=== PATIENT | male | born 1985 | race African-American/Black ===

== ENCOUNTER 2022-09-26 20:03 | Inpatient (IN) | payer SELFPAY ==
[2022-09-26] MEDS ORDERED: Adenosine 6 MG/2 ML VIAL ONE ×2 (20:14)
[2022-09-26] MEDS ORDERED: Metoprolol Tartrate 50 MG TAB ONE (20:51)
[2022-09-26] MEDS ORDERED: Magnesium 2 GM/50 ML BAG (IN WATER) ONE (20:51)
[2022-09-26 21:38] LABS: #Basophils 0.1 thou/uL (0.0-0.2); #Eosinphils 0.2 thou/uL (0.0-0.7); #Lymphocytes 3.7 thou/uL (1.20-3.40); #Monocytes 0.7 thou/uL (0.11-0.59); %Basophils 0.4 % (0.0-1.0); %Eosinophils 1.9 % (0.0-10.0); %Lymphocytes 28.9 % (21.0-51.0); %Monocytes 5.7 % (0.0-10.0); %Neutrophils 63.1 % (42.0-75.0); Hemoglobin 14.6 g/dL (14.0-18.0); Mean Corpuscular HGB CONC 33.4 g/dL (32.0-36.0); Mean Corpuscular Volume 95.6 fl (78.0-98.0); Mean Platelet Volume 9.5 fL (7.4-10.4); Platelet Count 191 10x3/uL (130-400); RBC Distribution Width 12.4 % (11.5-14.5); Red Blood Cell (RBC) Count 4.58 mill/uL (4.70-6.10); White Blood Cell (WBC) Count 12.7 10x3/uL (4.8-10.8)
[2022-09-26 21:46] LABS: ALT (SGPT) 79 U/L (8-55); AST (SGOT) 42 U/L (5-34); Alkaline Phosphatase 31 U/L (40-110); Anion Gap 13 mmol/L (10-20); BUN (Urea Nitrogen) 16 mg/dL (8.9-20.6); Bilirubin, Total 0.6 mg/dL (0.2-1.2); Calc. Creatinine Clearance 0 mL/min (70-130); Calcium 9.2 mg/dL (7.8-10.44); Carbon Dioxide 21 mmol/L (22-29); Chloride 111 mmol/L (98-107); Estimated GFR 73; Globulin 3.1 g/dL (2.4-3.5); Glucose 95 mg/dL (70-105); Potassium 4.3 mmol/L (3.5-5.1); Protein, Total 7.1 g/dL (6.0-8.3); Sodium 141 mmol/L (136-145)
[2022-09-26 22:18] LABS: CKMB 6.9 ng/mL (0-6.6)
[2022-09-26 23:30] LABS: Magnesium 2.2 mg/dL (1.6-2.6)
[2022-09-26] MEDS ORDERED: Aspirin Chewable 81 MG TAB ONE (23:30)
[2022-09-26] MEDS ORDERED: Ondansetron PF 4 MG/2 ML Vial IVP PRN (23:53)
[2022-09-26] MEDS ORDERED: Acetaminophen 325 MG TAB PO PRN (23:53)
[2022-09-27] MEDS ORDERED: Diltiazem 125 MG in Sodium Chloride 0.9% 100 ML IVPB SCH (02:15)
[2022-09-27] MEDS ORDERED: Diltiazem 125 MG/25 ML ONE (02:39)
[2022-09-27 03:11] LABS: Bilirubin Negative (Negative); Blood, Urine Negative (Negative); Clarity Turbid (Clear); Glucose, Urine (Dipstick) Normal (Negative); Ketone, Urine Negative (Negative); Leukocyte Negative Leu/uL (Negative); Nitrite Negative (Negative); Protein, Urine (Dipstick) 20 mg/dL (Neg-Trace); Specific Gravity, Urine 1.028 (1.002-1.036); Urobilinogen Normal mg/dL (Less than 2)
[2022-09-27 03:20] LABS: Amphetamine Not Detected (NotDetected); Barbiturates Screen Not Detected (NotDetected); Benzodiazepine Screen Not Detected (NotDetected); Cocaine Metabolite Screen Not Detected (NotDetected); Methadone Not Detected (NotDetected); Methamphetamine Not Detected (NotDetected); Opiate Screen Not Detected (NotDetected); Oxycodone Screen Not Detected (NotDetected); Phencyclidine (PCP) Not Detected (NotDetected); THC/Cannabinoid Screen Detected (NotDetected); Tricyclic Screen Not Detected (NotDetected)
[2022-09-27 04:24] LABS: SARS-CoV-2 NAA Rapid Test Not Detected (NotDetected)
[2022-09-27 04:39] LABS: #Eosinphils 0.4 thou/uL (0.0-0.7); #Lymphocytes 4.1 thou/uL (1.20-3.40); #Monocytes 0.6 thou/uL (0.11-0.59); #Neutrophils 6.2 thou/uL (1.40-6.50); %Basophils 0.4 % (0.0-1.0); %Eosinophils 3.3 % (0.0-10.0); %Lymphocytes 36.2 % (21.0-51.0); %Monocytes 5.3 % (0.0-10.0); %Neutrophils 54.8 % (42.0-75.0); Hemoglobin 13.9 g/dL (14.0-18.0); Mean Corpuscular HGB CONC 34.7 g/dL (32.0-36.0); Mean Corpuscular Hemoglobin 32.9 pg (27.0-31.0); Mean Platelet Volume 9.7 fL (7.4-10.4); Platelet Count 180 10x3/uL (130-400); RBC Distribution Width 12.4 % (11.5-14.5); Red Blood Cell (RBC) Count 4.21 mill/uL (4.70-6.10); White Blood Cell (WBC) Count 11.3 10x3/uL (4.8-10.8)
[2022-09-27 04:59] LABS: ALT (SGPT) 68 U/L (8-55); AST (SGOT) 35 U/L (5-34); Albumin 3.6 g/dL (3.5-5.0); Alkaline Phosphatase 32 U/L (40-110); Bilirubin, Direct 0.1 mg/dL (0.1-0.3); Bilirubin, Total 0.4 mg/dL (0.2-1.2); Protein, Total 6.5 g/dL (6.0-8.3)
[2022-09-27 05:01] LABS: Anion Gap 12 mmol/L (10-20); BUN (Urea Nitrogen) 16 mg/dL (8.9-20.6); Calc. Creatinine Clearance 130 mL/min (70-130); Calcium 8.5 mg/dL (7.8-10.44); Carbon Dioxide 23 mmol/L (22-29); Chloride 108 mmol/L (98-107); Estimated GFR 90; Glucose 100 mg/dL (70-105); Magnesium 2.1 mg/dL (1.6-2.6); Potassium 3.7 mmol/L (3.5-5.1); Sodium 139 mmol/L (136-145)
[2022-09-27 05:07] LABS: Troponin I 0.977 ng/mL (< 0.028)
[2022-09-27 12:14] VITALS: BMI 35.7
[2022-09-27] MEDS ORDERED: Communication Order-Pharmacy FS SCH (16:00)
[2022-09-27] MEDS ORDERED: FLU VACC QS2022-23(6MOS UP)/PF 60 MCG/0.5 ML SYRINGE IM ONE (18:00)
[2022-09-28 05:11] LABS: #Basophils 0.1 thou/uL (0.0-0.2); #Eosinphils 0.3 thou/uL (0.0-0.7); #Lymphocytes 3.5 thou/uL (1.20-3.40); #Monocytes 0.6 thou/uL (0.11-0.59); %Basophils 0.8 % (0.0-1.0); %Eosinophils 4.3 % (0.0-10.0); %Lymphocytes 46.4 % (21.0-51.0); %Neutrophils 40.5 % (42.0-75.0); Hemoglobin 14.4 g/dL (14.0-18.0); Mean Corpuscular HGB CONC 35.1 g/dL (32.0-36.0); Mean Corpuscular Volume 94.2 fl (78.0-98.0); Mean Platelet Volume 9.4 fL (7.4-10.4); Platelet Count 181 10x3/uL (130-400); RBC Distribution Width 12.1 % (11.5-14.5); Red Blood Cell (RBC) Count 4.37 mill/uL (4.70-6.10); White Blood Cell (WBC) Count 7.5 10x3/uL (4.8-10.8)
[2022-09-28 05:38] LABS: Anion Gap 13 mmol/L (10-20); BUN (Urea Nitrogen) 12 mg/dL (8.9-20.6); Calc. Creatinine Clearance 137 mL/min (70-130); Calcium 8.9 mg/dL (7.8-10.44); Carbon Dioxide 22 mmol/L (22-29); Chloride 106 mmol/L (98-107); Estimated GFR 92; Glucose 116 mg/dL (70-105); Potassium 3.7 mmol/L (3.5-5.1); Sodium 137 mmol/L (136-145)
[2022-09-28] MEDS ORDERED: Nitroglycerin 100MG/250ML BOT 0 ML ONE (08:28)
[2022-09-28] MEDS ORDERED: Lidocaine 1% (PF) 30 ML VIAL ONE (08:28)
[2022-09-28] MEDS ORDERED: Verapamil 5 MG/2 ML VIAL ONE ×2 (08:28→08:29)
[2022-09-28] MEDS ORDERED: Nitroglycerin 100MG/250ML BOT 250 ML ONE (08:30)
[2022-09-28] MEDS ORDERED: Heparin 10,000 UNITS/ 10 ML VIAL ONE (08:30)
[2022-09-28] MEDS ORDERED: Midazolam HCl 2 mg/2 ml Vial ONE (08:39)
[2022-09-28] MEDS ORDERED: FENTANYL 50 MCG/ML 1 ML VIAL ONE (08:40)
[2022-09-28] MEDS ORDERED: Nitroglycerin 0.4 MG TAB (25 Tab Bottle) SL PRN (09:24)
[2022-09-28] MEDS ORDERED: Sodium Chloride 0.9% 200 ML IV PRN (09:24)
[2022-09-28] MEDS ORDERED: Acetaminophen/Codeine 30-300mg Tablet PO PRN ×2 (09:24)
[2022-09-28] MEDS ORDERED: Sodium Chloride 0.9% 1,000 ML IV SCH (09:30)
[2022-09-28] MEDS ORDERED: Iopamidol 370 76% 100 ML VIAL ONE (15:35)
[2022-09-28 18:29] VITALS: BP 148/103; TEMP 98.9
== END 2022-09-28 18:00 | disposition home or self-care (01) | DRG 281 ==
LOC: ERS 20:03 → 2SW 23:27 → ERHOLD 23:36 → 2SW 09-27 10:02 → OBSVTOIN 09-27 11:48
PROVIDERS: ADMIT Internal Medicine; ATTEND Hospitalist
PROC: 4A023N7 Measurement of Cardiac Sampling and Pressure, Left Heart, Percutaneous Approach (ICD-10-PCS; principal; 2022-09-28)
PROC: B2111ZZ Fluoroscopy of Multiple Coronary Arteries using Low Osmolar Contrast (ICD-10-PCS; 2022-09-28)
DX: I47.1 Supraventricular tachycardia (principal); I21.A1 Myocardial infarction type 2; N17.9 Acute kidney failure, unspecified; F41.9 Anxiety disorder, unspecified; F17.210 Nicotine dependence, cigarettes, uncomplicated; R74.8 Abnormal levels of other serum enzymes; Z82.49 Family history of ischemic heart disease and other diseases of the circulatory system; Z20.822 Contact with and (suspected) exposure to COVID-19
CPT/HCPCS: 36415; 71045; 80048; 80053; 80076; 80306; 81003; 82553; 83735; 84443; 84484; 85025; 85379; 93005; 93306; 93458; C1769; C1894; J0153; J1644; J1650; J2001; J2250; J3010; J3475; J3490; J7050; Q9967

== ENCOUNTER 2024-06-17 16:32 | Inpatient (IN) | payer SELFPAY ==
[2024-06-17 18:09] VITALS: BMI 28.7
[2024-06-17] MEDS ORDERED: Dextrose 5% in Water 1,000 ML IV PRN (18:11)
[2024-06-17] MEDS ORDERED: Glucagon 1 MG/ML KIT IM PRN (18:11)
[2024-06-17] MEDS ORDERED: Dextrose 50% Abboject 50 ML SYRINGE SLOW IVP PRN (18:11)
[2024-06-17] MEDS: Lactated Ringer's 1,000 ML IV SCH (18:38)
[2024-06-17] MEDS ORDERED: Acetaminophen 325 MG TAB PO PRN (19:04)
[2024-06-17] MEDS: Insulin Glargine 30 UNITS/0.3 ML VIAL SC SCH (20:43)
[2024-06-17 22:53] LABS: Glucose POC Confirmation 532 mg/dL (80-115)
[2024-06-17] MEDS: Insulin Lispro 100 UNIT/ML 10 ML VIAL SC SCH (22:56)
[2024-06-18] MEDS: Insulin Lispro 100 UNIT/ML 10 ML VIAL SC SCH (01:27)
[2024-06-18] MEDS: Insulin Lispro 100 UNIT/ML 10 ML VIAL SC PRN ×2 (05:38→20:09)
[2024-06-18 06:15] LABS: Hematocrit 35.3 % (42.0-52.0); Hemoglobin 12.4 g/dL (14.0-18.0); Mean Corpuscular HGB CONC 35.1 g/dL (32.0-36.0); Mean Corpuscular Hemoglobin 29.9 pg (27.0-31.0); Mean Corpuscular Volume 85.1 fL (78.0-98.0); Platelet Count 179 10x3/uL (130-400); Red Blood Cell (RBC) Count 4.15 mill/uL (4.70-6.10)
[2024-06-18 06:34] LABS: Hemoglobin A1c Greater than 14.0 % (4.0-6.0)
[2024-06-18 06:38] LABS: Band 2 % (5-11); Eosinophils 3 % (0-10); Lymphocytes 40 % (21-51); Metamyelocyte 2 % (0-0); Monocytes 3 % (0-10); Myelocyte 2 % (0-0); Neutrophil 39 % (42-75); Platelet Adequacy Comment Platelets Normal; RBC Morphology Within Normal Limits; Reactive Lymphocytes 10 % (0-10); Smudge Cells 21.8 %
[2024-06-18 06:45] LABS: ALT (SGPT) 19 U/L (8-55); AST (SGOT) 17 U/L (5-34); Alkaline Phosphatase 44 U/L (40-110); Anion Gap 15 mmol/L (10-20); BUN (Urea Nitrogen) 15 mg/dL (8.9-20.6); Bilirubin, Total 0.3 mg/dL (0.2-1.2); Calc. Creatinine Clearance 92 mL/min (70-130); Calcium 8.2 mg/dL (7.8-10.44); Carbon Dioxide 21 mmol/L (22-29); Cardiac Risk 8.2 (Less than 4.5); Chloride 102 mmol/L (98-107); Cholesterol 196 mg/dl (< 200 Desired); Estimated GFR 70; Globulin 2.8 g/dL (2.4-3.5); Glucose 256 mg/dL (70-105); HDL Cholesterol 24 mg/dL (>60 Neg Risk); Lipase 27 U/L (8-78); Potassium 3.2 mmol/L (3.5-5.1); Protein, Total 5.8 g/dL (6.0-8.3); Sodium 135 mmol/L (136-145); Triglycerides 451 mg/dL (Less than 150)
[2024-06-18] MEDS: Insulin Glargine 30 UNITS/0.3 ML VIAL SC SCH (09:05)
[2024-06-18] MEDS: Potassium Chloride 20 MEQ TAB PO SCH (09:05)
[2024-06-18] MEDS: HumaLOG 300 UNITS/3 ML VIAL SC SCH (09:06)
[2024-06-18 10:34] LABS: Reference Lab Name LABCORP
[2024-06-18 17:34] VITALS: BMI 28.7
[2024-06-18] MEDS: metFORMIN 500 MG TAB PO SCH (17:47)
[2024-06-18] MEDS: Atorvastatin Calcium 40 MG TAB PO SCH (20:08)
[2024-06-19 05:36] LABS: ALT (SGPT) 22 U/L (8-55); AST (SGOT) 23 U/L (5-34); Alkaline Phosphatase 36 U/L (40-110); Anion Gap 12 mmol/L (10-20); BUN (Urea Nitrogen) 12 mg/dL (8.9-20.6); Bilirubin, Total 0.6 mg/dL (0.2-1.2); Calc. Creatinine Clearance 100 mL/min (70-130); Calcium 8.4 mg/dL (7.8-10.44); Carbon Dioxide 23 mmol/L (22-29); Chloride 103 mmol/L (98-107); Estimated GFR 77; Globulin 2.7 g/dL (2.4-3.5); Glucose 260 mg/dL (70-105); Potassium 3.3 mmol/L (3.5-5.1); Protein, Total 5.7 g/dL (6.0-8.3); Sodium 135 mmol/L (136-145)
[2024-06-19 06:33] LABS: Hematocrit 35.5 % (42.0-52.0); Hemoglobin 12.7 g/dL (14.0-18.0); Mean Corpuscular HGB CONC 35.8 g/dL (32.0-36.0); Mean Corpuscular Hemoglobin 30.3 pg (27.0-31.0); Mean Corpuscular Volume 84.7 fL (78.0-98.0); Mean Platelet Volume 13.4 fL (7.4-10.4); Platelet Count 161 10x3/uL (130-400); Red Blood Cell (RBC) Count 4.19 mill/uL (4.70-6.10)
[2024-06-19 07:18] LABS: Band 2 % (5-11); Eosinophils 1 % (0-10); Large Platelets 16.8 % (0-5); Lymphocytes 55 % (21-51); Monocytes 5 % (0-10); Neutrophil 34 % (42-75); Platelet Adequacy Comment Platelets Normal; RBC Morphology Within Normal Limits; Reactive Lymphocytes 1 % (0-10)
[2024-06-19] MEDS: HumaLOG 300 UNITS/3 ML VIAL SC SCH (09:52)
[2024-06-19] MEDS: Potassium Chloride 20 MEQ TAB PO SCH (09:52)
[2024-06-19] MEDS: Insulin Glargine 30 UNITS/0.3 ML VIAL SC SCH (09:53)
[2024-06-20 05:15] LABS: #Basophils 0.04 10x3/uL (0.0-0.2); %Basophils 0.6 % (0.0-1.0); %Eosinophils 1.5 % (0.0-10.0); %Lymphocytes 55.2 % (21.0-51.0); %Neutrophils 36.5 % (42.0-75.0); Hematocrit 36.1 % (42.0-52.0); Hemoglobin 12.6 g/dL (14.0-18.0); Mean Corpuscular HGB CONC 34.9 g/dL (32.0-36.0); Mean Corpuscular Hemoglobin 30.4 pg (27.0-31.0); Mean Corpuscular Volume 87.2 fL (78.0-98.0); Mean Platelet Volume 12.7 fL (7.4-10.4); Platelet Count 157 10x3/uL (130-400); RBC Distribution Width 12.3 % (11.5-14.5); Red Blood Cell (RBC) Count 4.14 mill/uL (4.70-6.10)
[2024-06-20 05:41] LABS: ALT (SGPT) 25 U/L (8-55); AST (SGOT) 27 U/L (5-34); Albumin 3.1 g/dL (3.5-5.0); Alkaline Phosphatase 40 U/L (40-110); Anion Gap 11 mmol/L (10-20); BUN (Urea Nitrogen) 11 mg/dL (8.9-20.6); Bilirubin, Total 0.6 mg/dL (0.2-1.2); Calc. Creatinine Clearance 107 mL/min (70-130); Calcium 8.4 mg/dL (7.8-10.44); Carbon Dioxide 23 mmol/L (22-29); Chloride 106 mmol/L (98-107); Estimated GFR 84; Globulin 2.7 g/dL (2.4-3.5); Glucose 150 mg/dL (70-105); Potassium 3.2 mmol/L (3.5-5.1); Protein, Total 5.8 g/dL (6.0-8.3); Sodium 137 mmol/L (136-145)
[2024-06-20] MEDS ORDERED: Potassium Chloride 20 MEQ TAB PO ONE (06:42)
[2024-06-20 08:08] LABS: Magnesium 1.8 mg/dL (1.6-2.6)
[2024-06-20] MEDS: Potassium Chloride 20 MEQ TAB PO SCH (08:14)
[2024-06-20] MEDS: Insulin Lispro 100 UNIT/ML 10 ML VIAL SC SCH ×2 (09:13→12:40)
[2024-06-20] MEDS ORDERED: Insulin Lispro 100 UNIT/ML 10 ML VIAL SC SCH (12:00)
[2024-06-20] MEDS: Insulin Glargine 30 UNITS/0.3 ML VIAL SC SCH (12:40)
[2024-06-21 06:04] LABS: #Basophils 0.04 10x3/uL (0.0-0.2); %Basophils 0.6 % (0.0-1.0); %Eosinophils 1.6 % (0.0-10.0); %Lymphocytes 48.7 % (21.0-51.0); %Monocytes 7.4 % (0.0-10.0); %Neutrophils 41.4 % (42.0-75.0); Hemoglobin 12.5 g/dL (14.0-18.0); Mean Corpuscular HGB CONC 34.7 g/dL (32.0-36.0); Mean Corpuscular Hemoglobin 29.9 pg (27.0-31.0); Mean Corpuscular Volume 86.1 fL (78.0-98.0); Mean Platelet Volume 13.5 fL (7.4-10.4); Platelet Count 148 10x3/uL (130-400); RBC Distribution Width 12.7 % (11.5-14.5); Red Blood Cell (RBC) Count 4.18 mill/uL (4.70-6.10)
[2024-06-21 06:15] LABS: ALT (SGPT) 39 U/L (8-55); AST (SGOT) 39 U/L (5-34); Alkaline Phosphatase 82 U/L (40-110); Anion Gap 13 mmol/L (10-20); BUN (Urea Nitrogen) 15 mg/dL (8.9-20.6); Bilirubin, Total 0.3 mg/dL (0.2-1.2); Calc. Creatinine Clearance 92 mL/min (70-130); Calcium 8.5 mg/dL (7.8-10.44); Carbon Dioxide 23 mmol/L (22-29); Chloride 105 mmol/L (98-107); Estimated GFR 70; Globulin 2.8 g/dL (2.4-3.5); Glucose 271 mg/dL (70-105); Potassium 3.7 mmol/L (3.5-5.1); Protein, Total 5.8 g/dL (6.0-8.3); Sodium 137 mmol/L (136-145)
[2024-06-21] MEDS: Insulin Glargine 30 UNITS/0.3 ML VIAL SC SCH (09:40)
[2024-06-21 11:57] VITALS: BP 142/93; TEMP 98.5
[2024-06-22] MEDS ORDERED: Insulin Glargine 30 UNITS/0.3 ML VIAL SC SCH (09:00)
== END 2024-06-21 12:50 | disposition home or self-care (01) | DRG 638 ==
LOC: T4-A 17:55 → OBSVTOIN 06-18 12:25
PROVIDERS: ADMIT Family Medicine; ATTEND Family Medicine
DX: E10.65 Type 1 diabetes mellitus with hyperglycemia (principal); N17.9 Acute kidney failure, unspecified; E86.0 Dehydration; E87.6 Hypokalemia
CPT/HCPCS: 36415; 36416; 80053; 80061; 83036; 83519; 83690; 83735; 83880; 84443; 85025; 86341; G0378; J1815; J7120